=== PATIENT | female | born 1950 | race Caucasian/White ===

== ENCOUNTER 2025-03-09 12:11 | Day surgery (SDC) | payer OTHER ==
[~2025-03-09] VITALS: Ht 165.1 cm; Wt 84.4 kg
[~2025-03-09 12:11] MED LIST: Balanced Salt Epinephrine Irrigation Solution 500 mL IR SCH; Diazepam 5 MG Tab PO PRN; Diazepam 5 MG Tab PO SCH; Lidocaine HCl/Pf 1% 5 ML VIAL XX SCH; Moxifloxacin HCL 0.5 MG/0.1 ML 0.4MLSYR LEFTEYE SCH; Ondansetron 4 MG SoluTab MM PRN; PHENYLEPHRINE\\TROPICAMIDE\\TETRACAINE OPHTHALMIC DILATING SOLN LEFTEYE PRN; Povidone-Iodine 450 DROP/30 ML Solution LEFTEYE SCH; Povidone-Iodine 450 DROP/30 ML Solution ONE; Tetracaine HCl/Pf 0.5% Opth Soln 4 ml ONE
[2025-03-09] MEDS ORDERED: Diazepam 10 MG Tab ONE (12:27)
[2025-03-09] MEDS ORDERED: PANTOPRAZOLE SO40 M2 PO (12:52)
[2025-03-09] MEDS ORDERED: Aspir 8181 MG PO (12:58)
[2025-03-09] MEDS ORDERED: ATORVASTATIN CA20 MG PO (12:58)
[2025-03-09] MEDS ORDERED: LATA.005SO BOTHEYES (12:58)
[2025-03-09] MEDS ORDERED: FOSAMAX70 MG PO (12:59)
[2025-03-09] MEDS ORDERED: THERA-D2000 UNIT PO (12:59)
--- NOTE | 2025-03-09 13:03 | NUR ---
03/09/25 1303 Janis Blank PATIENT REPORTS ANXIETY LEVEL 3/10 PRIOR TO ADMINISTRATION OF VALIUM 10MG PO X1 AT 1254. TETRACAINE IN AT 1256. PLEDGETT IN AT 1257. CALL LIGHT IN PT'S REACH. CONTINUOUS SPO2 AND HR MONITORING IN PLACE.
--- NOTE | 2025-03-09 13:36 | NUR ---
03/09/25 1336 Keshia Nix VITALS AT 1336 BP:116/66 P:84 O2:93% WITH 10 LITERS OF BLOW BY OXYGEN
== END 2025-03-09 14:05 | disposition home or self-care (01) ==
LOC: ORSCSDS 12:11
PROVIDERS: Student in an Organized Health Care Education/Training Program
PROC: 08RK3JZ Replacement of Left Lens with Synthetic Substitute, Percutaneous Approach (ICD-10-PCS; principal; 2025-03-09 14:00)
DX: H25.813 Combined forms of age-related cataract, bilateral (principal); H40.1112 Primary open-angle glaucoma, right eye, moderate stage; E78.00 Pure hypercholesterolemia, unspecified; Z79.82 Long term (current) use of aspirin; Z79.899 Other long term (current) drug therapy
CPT/HCPCS: A9270; V2632

== ENCOUNTER 2025-03-16 08:16 | Day surgery (SDC) | payer OTHER ==
[~2025-03-16] VITALS: Ht 165.1 cm; Wt 83.4 kg
[~2025-03-16 08:16] MED LIST changes: +ATORVASTATIN CA20 MG PO; +Aspir 8181 MG PO; +FOSAMAX70 MG PO; +LATA.005SO BOTHEYES; -Moxifloxacin HCL 0.5 MG/0.1 ML 0.4MLSYR LEFTEYE SCH; +Moxifloxacin HCL 0.5 MG/0.1 ML 0.4MLSYR RIGHTEYE SCH; +PANTOPRAZOLE SO40 M2 PO; -PHENYLEPHRINE\\TROPICAMIDE\\TETRACAINE OPHTHALMIC DILATING SOLN LEFTEYE PRN; +PHENYLEPHRINE\\TROPICAMIDE\\TETRACAINE OPHTHALMIC DILATING SOLN RIGHTEYE PRN; -Povidone-Iodine 450 DROP/30 ML Solution LEFTEYE SCH; +Povidone-Iodine 450 DROP/30 ML Solution RIGHTEYE SCH; +THERA-D2000 UNIT PO
[2025-03-16] MEDS ORDERED: Diazepam 10 MG Tab ONE (08:22)
--- NOTE | 2025-03-16 08:37 | NUR ---
03/16/25 0837 Chilo Emerson CALL LIGHT WITHIN REACH. TETRACAINE IN RIGHT EYE AT 0833 AND PLEDGETT IN AT 0834. PT ON CONTINOUS PULSE OXIMETER FOR MONITORING.
--- NOTE | 2025-03-16 09:14 | NUR ---
03/16/25 0914 Angelina Ca 0910 BP AT 106/71, HR 72, OXYGEN 94% ROOM AIR, RESP 16
--- NOTE | 2025-03-16 09:23 | NUR ---
03/16/[address] AT BEDSIDE
== END 2025-03-16 09:50 | disposition home or self-care (01) ==
LOC: ORSCSDS 08:16
PROVIDERS: Student in an Organized Health Care Education/Training Program
PROC: 08RJ3JZ Replacement of Right Lens with Synthetic Substitute, Percutaneous Approach (ICD-10-PCS; principal; 2025-03-16 09:30)
DX: H25.811 Combined forms of age-related cataract, right eye (principal); Z96.1 Presence of intraocular lens; H40.1130 Primary open-angle glaucoma, bilateral, stage unspecified; G47.30 Sleep apnea, unspecified; E78.00 Pure hypercholesterolemia, unspecified; Z79.82 Long term (current) use of aspirin; Z79.899 Other long term (current) drug therapy
CPT/HCPCS: A9270; V2632